=== PATIENT | male | born 2000 | race African-American/Black ===

== ENCOUNTER 2022-07-22 07:56 | Emergency (ER) | payer BC ==
[2022-07-22] MEDS ORDERED: Ibuprofen 800 MG TAB ONE (08:47)
[2022-07-22] MEDS ORDERED: Acetaminophen 500 MG TAB ONE (08:47)
== END 2022-07-22 11:00 | disposition home or self-care (01) ==
LOC: ERS 07:56
DX: J06.9 Acute upper respiratory infection, unspecified (principal); F17.290 Nicotine dependence, other tobacco product, uncomplicated; U07.1 COVID-19
CPT/HCPCS: 87635; 87804; 99284